=== PATIENT | female | born 1975 | race Caucasian/White ===

== ENCOUNTER 2017-08-07 12:56 | Emergency (ER) | payer OTHER ==
[2017-08-07 13:50] LABS: Lactic Acid - Sepsis 3.2 mmol/L (0.5-2.2)
[2017-08-07 13:51] LABS: #Eosinphils 0.1 thou/uL (0.0-0.7); #Lymphocytes 0.3 thou/uL (1.20-3.40); #Monocytes 0.2 thou/uL (0.11-0.59); #Neutrophils 7.7 thou/uL (1.40-6.50); %Basophils 0.1 % (0.0-1.0); %Eosinophils 0.6 % (0.0-10.0); %Lymphocytes 4.1 % (21.0-51.0); %Monocytes 2.6 % (0.0-10.0); Hematocrit 38.4 % (36.0-47.0); Mean Platelet Volume 7.7 fL (7.4-10.4); Red Blood Cell (RBC) Count 4.24 mill/uL (4.20-5.40); White Blood Cell (WBC) Count 8.3 thou/uL (4.8-10.8)
[2017-08-07 14:00] LABS: Troponin I Less than 0.010 ng/mL (< 0.028)
[2017-08-07 14:09] LABS: AST (SGOT) 20 U/L (5-34); Alkaline Phosphatase 43 U/L (40-150); Anion Gap 15 mmol/L (10-20); BUN (Urea Nitrogen) 21 mg/dL (7.0-18.7); Bilirubin, Total 0.8 mg/dL (0.2-1.2); Calc. Creatinine Clearance 0 mL/min (70-130); Calcium 8.1 mg/dL (7.8-10.44); Carbon Dioxide 17 mmol/L (22-29); Chloride 111 mmol/L (98-107); Estimated GFR-MDRD 72; Globulin 2.1 g/dL (2.4-3.5); Protein, Total 5.6 g/dL (6.0-8.3)
[2017-08-07 14:59] LABS: ALT (SGPT) 18 U/L (8-55); CK (CPK) 62 U/L (29-168)
== END 2017-08-07 15:20 | disposition home or self-care (01) ==
LOC: ERS 12:56
DX: K52.9 Noninfective gastroenteritis and colitis, unspecified (principal); E86.0 Dehydration
CPT/HCPCS: 36415; 80053; 82553; 83605; 84443; 84484; 85025; 93005; 96360